=== PATIENT | female | born 1970 | race Caucasian/White ===

== ENCOUNTER → 2016-10-06 | Outpatient (CLI) | payer MEDICARE, OTHER | LOC: HEART CORB 14:00 | DX: R00.2 Palpitations (principal); R00.0 Tachycardia, unspecified | CPT/HCPCS: 93306 ==

== ENCOUNTER → 2016-10-29 | Outpatient (CLI) | payer MEDICARE, OTHER | LOC: EMI 10-20 14:00 | DX: G35 Multiple sclerosis (principal); M47.814 Spondylosis without myelopathy or radiculopathy, thoracic region | CPT/HCPCS: 72157; A9577; J7050 ==

== ENCOUNTER → 2016-12-09 | Outpatient (CLI) | payer MEDICARE, OTHER | LOC: RAD 16:28 | DX: R07.81 Pleurodynia (principal) | CPT/HCPCS: 71020; 71100 ==

== ENCOUNTER → 2020-08-17 | Outpatient (CLI) | payer MEDICARE ==
[~2020-08-17] MED LIST: ASPIR 8181 MG PO; AUBAGIO14 MG PO; BENTYL10 MG PO; CLARITIN10 MG PO; HAIR, SKIN & N1 EAC2 PO; LIORESAL TAB 1010 MG PO; LOVENOX SY40 MG/0.4 SQ; MELATONIN3 MG PO; MOBIC15 MG PO; NEURONTIN 300300 MG PO; PAXIL20 MG PO; PERCOCET 5/325 T1 EA PO; PERCOCET 7.5-31 EACH PO; TENORMIN 25 MG25 MG PO; VITAMIN D250000 UNIT PO
[2020-08-17 11:48] LABS: HEMOGLOBIN 12.3 gm/dl (12.3-15.3); RED BLOOD COUNT 4.08 M/UL (4.00-5.10); WHITE BLOOD COUNT 5.1 K/UL (4.5-11.0)
[2020-08-17 12:03] LABS: BUN/CREATININE RATIO 24 (0-10)
== END ==
LOC: LAB 10:46
PROVIDERS: Nurse Practitioner Family
DX: G35 Multiple sclerosis (principal)
CPT/HCPCS: 36415; 80053; 85025

== ENCOUNTER → 2021-07-08 | Outpatient (CLI) | payer MEDICARE | LOC: EMI 13:38 | DX: G35 Multiple sclerosis (principal); M48.8X2 Other specified spondylopathies, cervical region | CPT/HCPCS: 70553; 72156; A9577 ==